=== PATIENT | female | born 1995 | race Caucasian/White ===

== ENCOUNTER 2017-07-17 17:19 | Emergency (ER) | payer OTHER ==
[2017-07-17 18:09] VITALS: BP 137/89
[2017-07-17] MEDS ORDERED: NORCO 7.5/325 PO ONE (18:39)
[2017-07-17] MEDS ORDERED: MOTRIN PO ONE (18:39)
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
== END 2017-07-17 18:58 | disposition home or self-care (01) ==
LOC: ED 17:19
DX: S02.2XXA Fracture of nasal bones, initial encounter for closed fracture (principal); V47.0XXA Car driver injured in collision with fixed or stationary object in nontraffic accident, initial encounter; Y93.89 Activity, other specified; Y99.8 Other external cause status; Y92.410 Unspecified street and highway as the place of occurrence of the external cause
CPT/HCPCS: 99282